=== PATIENT | male | born 1990 | race Caucasian/White ===

== ENCOUNTER 2020-01-24 23:01 | Emergency (ER) | payer MEDICAID ==
[~2020-01-24] VITALS: Ht 172.7 cm; Wt 77.0 kg
[2020-01-25] MEDS ORDERED: LORAZEPAM 2MG/ML CPJ IM ONE
[2020-01-25 02:03] VITALS: BP 147/105
== END 2020-01-25 02:04 | disposition home or self-care (01) ==
LOC: ER 23:01
DX: F15.280 Other stimulant dependence with stimulant-induced anxiety disorder (principal)
CPT/HCPCS: 93005; 96372; 99283; J2060

== ENCOUNTER 2021-10-13 12:01 | Emergency (ER) | payer MEDICAID ==
[~2021-10-13] VITALS: Ht 170.2 cm; Wt 94.0 kg
[2021-10-13 12:53] LABS: BASOPHILS % 0.4 % (0.0-2.0); EOSINOPHILS % 0.9 % (0.0-5.0); HEMATOCRIT. 45.3 % (42.0-52.0); HEMOGLOBIN. 14.6 g/dL (14.0-18.0); LYMPHOCYTES % 23.8 % (20.0-50.0); MEAN CORPUSCULAR HEMOGLOBIN 28.3 pg (28.0-32.0); MEAN CORPUSCULAR VOLUME 87.6 fL (80.0-94.0); MEAN PLATELET VOLUME 8.2 fl (7.4-10.4); MONOCYTES % 6.9 % (2.0-8.0); PLATELET 244 x1000/uL (130-400); RED BLOOD CELL COUNT 5.17 mill/uL (4.7-6.1); RED CELL DISTRIBUTION WIDTH 13.2 % (11.6-14.6)
[2021-10-13 12:57] LABS: CHLORIDE 106 mEq/L (98-107)
[2021-10-13 13:01] LABS: ETHANOL BLOOD < 10 mg/dL
[2021-10-13] MEDS ORDERED: KETOROLAC 30MG/ML VIAL IV STA (13:13)
[2021-10-13] MEDS ORDERED: SODIUM CHLORIDE 0.9% 1,000 ML IV ONE (13:15)
[2021-10-13 14:24] LABS: CLARITY URINE CLEAR (CLEAR); COLOR URINE YELLOW (YELLOW); KETONES URINE NEGATIVE (NEGATIVE); LEUKOCYTE ESTERASE URINE NEGATIVE (NEGATIVE); NITRITE URINE NEGATIVE (NEGATIVE); OCCULT BLOOD URINE NEGATIVE (NEGATIVE); PROTEIN URINE NEGATIVE (NEGATIVE); SPECIFIC GRAVITY URINE 1.013 (1.005-1.030); UROBILINOGEN URINE 0.2 E.U./dL (0.2-1.0)
[2021-10-13] MEDS ORDERED: IBUP-2029 MT (14:44)
[2021-10-13] MEDS ORDERED: CYCL10TA7 MT (14:44)
[2021-10-13 14:53] LABS: *BARBITURATES SCREEN URINE NEGATIVE (NEGATIVE); *BENZODIAZEPINES SCREEN URINE NEGATIVE (NEGATIVE); *COCAINE SCREEN URINE NEGATIVE (NEGATIVE); METHADONE URINE SCREEN NEGATIVE (NEGATIVE); OPIATES URINE SCREEN NEGATIVE (NEGATIVE)
[2021-10-13 14:54] LABS: CANNABINOID URINE SCREEN NEGATIVE (NEGATIVE); PHENCYCLIDINE URINE SCREEN NEGATIVE (NEGATIVE)
[2021-10-13 14:56] LABS: *AMPHETAMINES SCREEN URINE NEGATIVE (NEGATIVE)
[2021-10-13 15:10] VITALS: BP 130/80
== END 2021-10-13 15:12 | disposition home or self-care (01) ==
LOC: ER 12:52
DX: R10.9 Unspecified abdominal pain (principal); F31.9 Bipolar disorder, unspecified
CPT/HCPCS: 36415; 80053; 80305; 80320; 81003; 83690; 85025; 93005; 96361; 96374; 99291; J1885; J7030; Z7610; G0480